=== PATIENT | female | born 1950 | race Two or more races ===

== ENCOUNTER 2022-12-08 12:50 | Emergency (ER) | payer OTHER ==
[~2022-12-08] VITALS: Ht 167.6 cm; Wt 83.5 kg
[2022-12-08 13:09] VITALS: BP 162/73
--- NOTE | 2022-12-08 13:25 | NUR ---
PT W/C ASSISTED TO BED 8
--- NOTE | 2022-12-08 13:30 | NUR ---
pt taken to xray via w/c
--- NOTE | 2022-12-08 13:44 | NUR ---
pt brought back via w/c
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
[2022-12-08] MEDS ORDERED: HYDROcodone/APAP 5/325 MG 1 TAB TAB PO ONE (14:35)
--- NOTE | 2022-12-08 15:20 | NUR ---
stirrup and short leg splint applied to r leg. elaine wrap x 3. crutches provided.
[2022-12-08] MEDS ORDERED: ACET-8905 PO (15:29)
[2022-12-08] MEDS ORDERED: IBUP-2213 PO (15:30)
--- NOTE | 2022-12-08 15:30 | NUR ---
IV removed, catheter intact and site benign. Applied folded 4x4 gauze and tape to stop bleeding.
[2022-12-08 15:35] VITALS: BP 140/73
--- NOTE | 2022-12-08 15:35 | NUR ---
Patient discharged with v/s stable. Written and verbal after care instructions FOR ANKLE FRACTURE, CAST OR SPLINT CARE AND CRUTCH USE given and explained. Patient alert, oriented and verbalized understanding of instructions. Wheel Chair Assisted with to car. All questions addressed prior to discharge. ID band removed. Patient advised to follow up with PMD. Rx of HYDROCODONE AND IBUPROFEN given. Opportunity to ask questions provided and answered.
--- NOTE | 2022-12-08 15:40 | NUR ---
The patient's care was reviewed and supervised by Shirley Jones RN.
== END 2022-12-08 15:35 | disposition home or self-care (01) ==
LOC: MED 12:50
DX: S82.851A Displaced trimalleolar fracture of right lower leg, initial encounter for closed fracture (principal); I10 Essential (primary) hypertension; Z88.8 Allergy status to other drugs, medicaments and biological substances; Z98.890 Other specified postprocedural states; W19.XXXA Unspecified fall, initial encounter; Y93.01 Activity, walking, marching and hiking; Y92.59 Other trade areas as the place of occurrence of the external cause; Y99.8 Other external cause status
CPT/HCPCS: 29515; 73610; 99283